=== PATIENT | male | born 1960 | race Caucasian/White ===

== ENCOUNTER → 2018-02-08 15:55 | Outpatient (CLI) | payer OTHER, SELFPAY ==
--- NOTE | 2018-02-08 16:14 | EKG12_ITS ---
Test Reason : PREOP Blood Pressure : / mmHG Vent. Rate : 051 BPM Atrial Rate : 051 BPM P-R Int : 180 ms QRS Dur : 100 ms QT Int : 486 ms P-R-T Axes : 059 025 -04 degrees QTc Int : 447 ms Sinus bradycardia Possible Lateral infarct , age undetermined Abnormal ECG Confirmed by TATE ASH, NASRIN ([id number]), editor publications ELISEO LUCIANO ([id number]) on 02/14/2018 3:46:38 PM Referred By: Wes Mcnamara Confirmed By:NASRIN YBARRA MD
[2018-02-08 17:00] LABS: Hematocrit 38.9 % (40-54); Hemoglobin 13.3 g/dl (13.0-16.5); Mean Corp Hgb Conc 34.2 g/gl (32-36); Mean Corpuscular Volume 87.8 fL (80-94); Mean Platelet Vol. 9.8 fl (6.2-12.0); Platelet Count 172 K/mm3 (150-450); RBC Distribution Width CV 12.9 % (11.6-14.6); RBC Distribution Width SD 41.6 fl (35.1-43.9); Red Blood Count 4.43 M/mm3 (4.6-6.2); White Blood Count 8.2 K/mm3 (4.4-11.0)
[2018-02-08 17:06] LABS: Scan Indicated on CBC? Y/N NO
[2018-02-08 17:25] LABS: Anion Gap 7 (5-15); BUN 24 mg/dL (7-18); BUN/Creat Ratio 27.6 RATIO (10-20); Chloride 107 mmol/L (98-107); Creatinine, Serum 0.87 mg/dL (0.70-1.30); EST Glomerular Filtration Rate 97 mL/min (>60); Est Glom Filt Rate - Afr Amer 117 mL/min (>60); Glucose 92 mg/dL (74-106); Sodium Level 142 mmol/L (136-145)
== END ==
PROVIDERS: Referring Provider Physician Assistant; Visit Provider Physician Assistant
DX: Z01.818 Encounter for other preprocedural examination (principal); Z01.810 Encounter for preprocedural cardiovascular examination
CPT/HCPCS: 36415; 80048; 85027; 93005

== ENCOUNTER → 2023-03-15 | Outpatient (CLI) | payer SELFPAY, OTHER ==
--- NOTE | 2023-03-15 15:38 | MRI_ITS ---
EXAM: MR CERVICAL SPINE WITHOUT INTRAVENOUS CONTRAST CLINICAL INDICATION: pain TECHNIQUE: Multiplanar and multisequence MR images of the cervical spine without intravenous contrast were performed. COMPARISON: Cervical spine radiographs, 02/26/2023. FINDINGS: VERTEBRAE: There is no evidence of an acute fracture or traumatic subluxation. Normal cervical lordosis. Normal craniocervical junction aside from mild degenerative changes. Normal cervicothoracic junction aside from mild degenerative changes. SPINAL CORD: No distinct spinal cord signal abnormality is identified. Mild mass effect upon the spinal cord at C5-C6. SOFT TISSUES: No significant abnormality. No prevertebral soft tissue swelling. LYMPH NODES: No significant abnormality. There is no cervical adenopathy. DISCS/SPINAL CANAL/NEURAL FORAMINA: C2-C3: No significant abnormality. No disc herniation, spinal canal stenosis, or neural foraminal narrowing. C3-C4: Central disc herniation and moderate bilateral facet and uncovertebral joint arthrosis. Mild spinal canal stenosis and bilateral neural foraminal narrowing. C4-C5: Central disc herniation and mild to moderate bilateral facet and uncovertebral joint arthrosis. Mild spinal canal stenosis and bilateral neural foraminal narrowing. C5-C6: Central disc herniation and moderate bilateral facet and uncovertebral joint arthrosis. Mild to moderate spinal canal stenosis with mass effect upon the ventral spinal cord. Mild bilateral neural foraminal narrowing. C6-C7: Disc height loss and disc desiccation with Modic type I predominant endplate signal changes. Disc bulge with superimposed central disc herniation and moderate bilateral facet and uncovertebral joint arthrosis with moderate left greater than right neural foraminal narrowing and mild spinal canal stenosis. C7-T1: Bilateral facet arthrosis. Mild bilateral neural foraminal narrowing. No disc herniation or spinal canal stenosis. MRI/Spine Cervical (Routine) IMPRESSION: Multilevel degenerative changes are worst at C5-C6. At this level, there is mild mass effect upon the spinal cord. No spinal cord signal abnormality is identified. See details above. Electronically Signed: Isra Palacios DO at 23:43 EST ,
== END | disposition home or self-care (01) ==
PROVIDERS: Referring Provider Orthopaedic Surgery; Visit Provider Orthopaedic Surgery
DX: M50.223 Other cervical disc displacement at C6-C7 level (principal)
CPT/HCPCS: 72141

== ENCOUNTER 2023-04-21 11:38 | Day surgery (SDC) | payer SELFPAY, OTHER ==
[2023-04-21 12:06] VITALS: BP 147/87; PULSE 59; RESP 16; TEMP 36.9; O2SAT 97
[2023-04-21] MEDS: Lactated Ringers 1,000 ML 15 ML IV (12:10)
--- NOTE | 2023-04-21 13:07 | HP.PCM_ITS ---
HPI - General HPI Narrative MADHU ARSHAD, is a 63 M who present for bilateral endoscopic carpal tunnel release. no changes to h and p. pt wishes to proceed. rab and post op restrictions discussed. bilateral wrists marked, no further concerns. MR#: [id number] Acct: [id number] Name: MADHU ARSHAD Rep #: [id number] : 1960 Provider: Dr. Jhonatan Epps MD Age/Sex: 63/M Location: [facility] [place] Status: Signed Intake Vital Signs 03/16/2312:43 Height 5 ft 7 in Intake Visit Reasons: BI LAT WRIST Chief Complaint: B/L wrists Director Of Religious Activities Required: No Accompanied by: Is patient in pain?: No Allergies No Known Allergies Allergy (Unverified 04/12/23 14:30) Medications NK 02/26/23 [History Confirmed 04/12/23] PFSH Medical History (Updated 04/12/23 @ 14:35 by Jhonatan Epps MD) Bilateral carpal tunnel syndrome Surgical History (Updated 04/12/23 @ 14:32 by Geovanna Braswell) H/O shoulder surgery History of hernia repair Social History (Updated 04/12/23 @ 14:32 by Geovanna Braswell) Smoking Status: Former smoker alcohol intake: never substance use type: does not use HPI BI LAT WRIST Details: This documentation accurately reflects the service provided and the decisions made by me, Dr. Jhonatan Epps MD 04/12/23 [id number]. Part of today?s visit was documented by [ ], acting as scribe. MADHU ARSHAD is a 63 year old M here today for bilateral carpal tunnel syndrome. referred by Dr. Rice spine surgeon - per his notes The thing that bothers him the very most is the numbness in his right hand sometimes it feels like it comes up his forearm and even into his arm thus it is hard to tell exactly where it is coming from. He does have somewhat of a positive Phalen's on the right negative on the left. At times the left hand does also go to sleep though not as bad as the right. He worked hard with his hands all his life. about 10 years of both hands going numb, works on heavy equipment, right worse, RHD. index and middle are the worse. worse when eating, holding a spoon or writing. here w his . no smoking, or other med hx. Ortho Exam General General: Yes no acute distress Neurologic: Yes alert and Yes oriented x3 Psychologic: Yes reasonable and appropriate Right Wrist/Hand Skin/Wound: Yes CDI, No Swelling, No Ecchymosis, Yes nail intact and Yes capillary refill normal Right Wrist: Yes ROM-Extension 0-60, ROM-Flexion 0-80, ROM-Pronation 0-80, ROM- Supination 0-90, Durken's Test, Phalen's and Thenar Atrophy; No Tinel's or Hypothenar Atrophy Motor: EPL: 5, FDP-2: 5, 1st Dorsal Interosseous: 5 and APB: 4 Sensation: Radial: I, Ulnar: I and Median: D Left Wrist/Hand Skin/Wound: Yes CDI, No Swelling, No Ecchymosis, Yes nail intact, Yes capillary refill normal and No erythema Left Wrist: Yes ROM-Extension 0-60, Yes ROM-Flexion 0-80, Yes ROM-Pronation 0- 80, Yes ROM-Supination 0-90, Yes Durken's Test, Yes Phalen's and Yes Thenar Atrophy; No Tinel's and No Hypothenar Atrophy Motor: EPL: 5, FDP-2: 5, 1st Dorsal Interosseous: 5 and APB: 4 Sensation: Radial: I, Ulnar: I and Median: D Supplemental Info Nerve conduction studies from April 05, 2023 impression is 1. Right median mononeuropathy at the wrist. This is consistent with a diagnosis of carpal tunnel syndrome moderate to severe in degree. 2. Left median mononeuropathy at the wrist. This is consistent with a diagnosis of carpal tunnel syndrome moderate to severe in degree. 3. This study is suggestive but not diagnostic for superimposed mild sensory polyneuropathy. May consider single lower extremity to assist in ruling in or out the diagnosis of clinically indicated. 4. No right or left cervical radicular findings are identified. Coding Level of Care Code Off vis,est,level 3 Diagnoses Bilateral carpal tunnel syndrome G56.03 Assessment and Plan Assessment and Plan (1) Bilateral carpal tunnel syndrome: Status: Acute Plan: MADHU ARSHAD is a 63 year old M here today for bilateral carpal tunnel syndrome. Discussed and counselled on the diagnosis prognosis different treatment options. Explained this can get worse or more permanent with time. The patient already has had this for 10 years and it is rated at moderate to severe . Therefore surgery may have a longer recovery or less reliable. Other options rest ice anti-inflammatories activity modifications and nighttime splinting cortisone injections are open versus endoscopic surgery. Patient would like to go ahead with bilateral endoscopic carpal tunnel release. I explained the pros and cons risks and benefits of this versus open surgery quicker recovery but also may be higher rate of incomplete release. The patient understands wishes to proceed. He had no further questions or concerns. Pros and cons risks and benefits were discussed with the patient including but not limited to infection, pain, stiffness, bleeding, damage to surrounding structures, neurovascular injury, recurrence or retear, failure or wear of hardware or fixation, instability, fracture, deep vein thrombosis and pulmonary embolism, anesthetic risks, , patient dissatisfaction, need for further surgery and other risks. Patient understood and wished to proceed with surgery, and signed the informed consent documentation. [facility] Medical History (Updated 04/19/23 @ 10:17 by Georgina Danielle) Bilateral carpal tunnel syndrome Cardiology follow-up encounter CPAP (continuous positive airway pressure) dependence Difficulty swallowing History of stress test Hypertrophic cardiomyopathy Injury of head and neck Non-smoker Shortness of breath on exertion Wears dentures Wears glasses Home Medications NK 02/26/23 [History Last Taken Unknown] Allergy/AdvReac Type Severity Reaction Status Date / Time No Known Allergies Allergy Verified 04/21/23 12:05 Surgical History (Updated 04/19/23 @ 10:17 by Georgina Danielle) H/O shoulder surgery History of esophagogastroduodenoscopy (EGD) History of hernia repair Social History (Updated 04/12/23 @ 14:32 by Geovanna Braswell) Smoking Status: Never smoker alcohol intake: never substance use type: does not use Vital Signs Vital Signs Vital Signs: 04/21/23 12:06 04/21/23 12:06 Temperature 98.5 F Temperature Source Temporal Pulse Rate 59 L Respiratory Rate 16 Respiratory Pattern Normal Blood Pressure 147/87 H Blood Pressure Mean 107 Blood Pressure Source Monitor Blood Pressure Position Semi-Fowlers Blood Pressure Location Left Arm Pulse Ox 97 Oxygen Delivery Method Room Air Weight Weight: 191 lb 12.835 oz Body Mass Index (BMI) 30.0
[2023-04-21] MEDS: Cefazolin 2 GM in 0.9% Normal Saline (100mL Bag) 100 ML IV (13:29)
--- NOTE | 2023-04-21 14:13 | OP.PCM_ITS ---
Problems Associated Problem List Diagnoses (1) Bilateral carpal tunnel syndrome: Report of Operation Date of Procedure: 04/21/23 Pre-Operative Diagnosis: bilateral carpal tunnel syndrome Post-Operative Diagnosis: same Surgery/Procedure Performed:: bilateral endoscopic carpal tunnel release Surgeon: Jhonatan Epps Type of Anesthesia: Local and MAC Anesthesiologist: Adrian Bryan Estimated Blood Loss (mL): 10 Description of Procedure: Patient was brought to the operating room theater.? The patient was administered 2g iv ancef prior to the start of the procedure.? Placed supine on the operating room table.? Anesthesia induced.? SCDs on the legs.? Tourniquet applied to bilat upper operative extremity, appropriately padded. Arm table used. Both wrists, operative extremity prepped and draped in the usual sterile fashion with chlorhexidine-based prep solution allowing over 3 minutes drying time prior to draping.? Preoperative timeout performed to confirm the site patient and the surgery. I performed the same procedure on both wrists, using arthroscope on the right and dorothy scope on the left. I used the [employer]the[employer] center line endoscopic carpal tunnel kit / technique. 0.25% bupivicaine at incision site. ? Tourniquet up at 250mmg. I made a transverse 2 cm incision in line with the? transverse wrist crease.? This was in line with the fourth digit.? I carried the dissection down through skin and subcutaneous tissue achieved meticulous hemostasis. Just ulnar to palmaris tendon.? I incised the antebrachial fascia.? I passed sequential dilators into the carpal tunnel along the radial border of the Guyon's canal aiming for the fourth digit with the hand in extension. I used a synovial haven vator to identify the transverse fibers of the transverse carpal tunnel ligament.? Passed the scope into the carpal tunnel. Once I had identified the full proximal and distal extent of the ligament I fully released the ligament under direct visualization by deploying the blade and slowly withdrawing the scope made sequential passes until I no longer felt tension as well as the entire extent of the ligament was released under direct visualization.? Sounded the tunnel with arnett tenotomy scissors, complete release, no bands. Pictures taken and saved before and after release. Tourniquet let down. Wound thoroughly irrigated.?Meticulous hemostasis achieved.? Incisions closed with 3-0 nylon for the skin.?Skin was cleaned and dried. adaptic 4x4 gauze and ayanna. Patient woken up,? transferred off the operating room table and taken to postanesthetic care unit in stable condition. All sponge needle instrument counts were correct no complications.? Plan for the patient to be discharged home according to day surgery criteria when they are comfortable. Follow-up in the office in 2 days time. Gentle ROM hand and elbow no heavy lifting. cpt 12460 x 2 Complications none Admit VTE Documentation VTE Present on Admission: No VTE Mechan Device Prophylaxis: SCD's VTE Pharm Prophylaxis ordered?: No Reason prophylaxis not ordered:: Treatment Not Indicated Procedures Musculoskeletal [id number]: Other Procedure See Report
--- NOTE | 2023-04-21 14:15 | DCINST_ITS ---
Discharge Instructions Diet Discharge Diet: No restrictions Activity Ice area for (Minutes): 10 Lifting Restrictions: no heavy lifting or gripping 6 weeks Keep extremity elevated above heart level: Operative Extremity Dressing / Incision Call your doctor if your incision/area has: Continuous Slow Oozing, Sudden Increased Bleeding, Increased Pain/ Swelling, Increased Redness, Foul Smelling Discharge and Swelling at the incision site Change Dressing in: leave in place till F/U Follow Up Care Please Follow Up With: Jhonatan Epps MD When: 2 days (if not then 2 weeks) Test Results: Test results from this visit will be discussed in further detail at your follow- up appointment, if applicable. Discharge Plan Admission Attending Provider: Jhonatan Epps Primary Care Provider: Jhonatan Curtis Discharge Orders/Prescriptions Prescriptions: No Action NK Referrals / Follow Up: Jhonatan Epps MD [Med Staff - Active Staff] - Jhonatan Curtis DO [Primary Care Provider] - Disposition Disposition (needs filled in before D/C Order can be placed): Home, Self Care
[2023-04-21 14:20] VITALS: BP 147/87; BP 148/76; PULSE 57; RESP 16; TEMP 36.7; O2SAT 94
[2023-04-21 14:25] VITALS: BP 136/77; BP 147/87; PULSE 49; RESP 16; O2SAT 95
[2023-04-21 14:30] VITALS: BP 147/87; BP 156/77; PULSE 48; RESP 16; O2SAT 96
[2023-04-21 14:40] VITALS: BP 147/87; BP 163/78; PULSE 52; RESP 16; TEMP 36.3; O2SAT 96
== END 2023-04-21 15:13 | disposition home or self-care (01) ==
LOC: SDC 11:39 → AC 11:41
PROVIDERS: Referring Provider Orthopaedic Surgery Sports Medicine; Visit Provider Orthopaedic Surgery Sports Medicine
PROC: (CPT 29848; principal; 2023-04-21 13:20)
DX: G56.03 Carpal tunnel syndrome, bilateral upper limbs (principal); Z87.891 Personal history of nicotine dependence
CPT/HCPCS: 29848; 01810; J7120; J2405

== ENCOUNTER → 2023-11-09 | Outpatient (CLI) | payer SELFPAY, OTHER ==
--- NOTE | 2023-11-09 10:52 | ECHOD_ITS ---
Reason For Study: HCM Procedure This was a 2D Doppler, Color Flow transthoracic echocardiogram. Exam performed in department. Left Ventricle Normal left ventricle. Severe eccentric left ventricular hypertrophy. The left ventricular ejection fraction is 60 %. No regional wall motion abnormalities noted. Right Ventricle Normal right ventricle. Normal systolic function. Atria The left atrium is moderately enlarged. Normal right atrium. Mitral Valve Normal mitral valve. No systolic anterior motion noted and no Valsalva gradient present. Mild (1+) mitral valve insufficiency. Tricuspid Valve Normal tricuspid valve. Mild tricuspid valve insufficiency. Pulmonary artery systolic pressure is 24 mmHg. Aortic Valve Trisinus/trileaflet aortic valve. Mild (1+) aortic valve insufficiency. Pulmonic Valve Normal pulmonic valve. Great Vessels Normal aortic root. The pulmonary artery is normal size. Normal inferior vena cava. Pericardium/Pleural No pericardial effusion. MMode/2D Measurements & Calculations LVIDd: 4.6 cm IVSd: 3.3 cm Ao root diam: 3.4 cm LVIDs: 2.4 cm LVPWd: 1.1 cm RVDd: 3.0 cm FS: 47.9 % LAV(MOD-bp): 82.4 ml LVAd ap4: 33.6 cm2 LVAd ap2: 26.7 cm2 LAV(MOD-bp) Indexed: 41.6 ml/m2 LVLd ap4: 9.5 cm LVLd ap2: 9.1 cm LAV(MOD-sp2): 65.6 ml EDV(MOD-sp4): 98.6 ml EDV(MOD-sp2): 67.7 ml LAV(MOD-sp4): 87.6 ml EDV(sp4-el): 100.3 ml EDV(sp2-el): 66.4 ml LVAs ap4: 19.6 cm2 LVAs ap2: 15.4 cm2 LVLs ap4: 8.5 cm LVLs ap2: 8.2 cm ESV(MOD-sp4): 40.8 ml ESV(MOD-sp2): 25.6 ml ESV(sp4-el): 38.2 ml ESV(sp2-el): 24.6 ml EF(MOD-sp4): 58.6 % EF(MOD-sp2): 62.1 % EF(sp4-el): 62.0 % SV(MOD-sp4): 57.8 ml SV(MOD-sp2): 42.1 ml SV(sp4-el): 62.2 ml LA dimension(2D): 4.5 cm LA A4 area: 27.3 cm2 RA A4 area: 22.9 cm2 TAPSE: 2.0 cm Time Measurements MV dec time: 0.33 sec Doppler Measurements & Calculations MV E max gurdeep: 73.4 cm/sec Lat Peak E' Gurdeep: 15.3 cm/sec Med Peak E' Gurdeep: 6.9 cm/sec MV A max gurdeep: 61.1 cm/sec E/E' lat: 4.8 E/E' med: 10.6 MV E/A: 1.2 MV dec slope: 220.7 cm/sec2 Ao V2 max: 130.9 cm/sec LV V1 max: 127.4 cm/sec Ao max P.8 mmHg LV V1 max P.5 mmHg Ao V2 mean: 95.2 cm/sec LV V1 mean P.9 mmHg Ao mean P.1 mmHg LV V1 mean: 92.3 cm/sec Ao V2 VTI: 33.7 cm LV V1 VTI: 32.1 cm AV (velocity ratio): 0.95 PA V2 max: 97.2 cm/sec PI end-d gurdeep: 63.0 cm/sec TR max gurdeep: 229.3 cm/sec TR max P.0 mmHg ECHO/Echo Complete Interpretation Summary Normal left ventricle. Severe eccentric left ventricular hypertrophy. The left ventricular ejection fraction is 60 %. No systolic anterior motion noted and no Valsalva gradient present Mild tricuspid valve insufficiency. Ordering Physician: Manoj Pandey Referring Physician: Jhonatan Curtis Performed By: Meghan Smith RDCS
== END | disposition home or self-care (01) ==
LOC: CVS 10:45
PROVIDERS: Referring Provider Internal Medicine Cardiovascular Disease; Visit Provider Internal Medicine Cardiovascular Disease
DX: I42.2 Other hypertrophic cardiomyopathy (principal)
CPT/HCPCS: 93306

== ENCOUNTER → 2023-12-02 | Outpatient (CLI) | payer OTHER, SELFPAY | END | disposition home or self-care (01) | LOC: PSN 13:27 | PROVIDERS: Referring Provider Nurse Practitioner Gerontology; Visit Provider Nurse Practitioner Gerontology | DX: I47.29 Other ventricular tachycardia (principal) | CPT/HCPCS: 93225; 93226 ==

== ENCOUNTER → 2023-12-31 | Outpatient (CLI) | payer OTHER, SELFPAY | END | disposition home or self-care (01) | LOC: PSN 07:29 | PROVIDERS: Referring Provider Nurse Practitioner Gerontology; Visit Provider Nurse Practitioner Gerontology | DX: I47.29 Other ventricular tachycardia (principal); I42.2 Other hypertrophic cardiomyopathy | CPT/HCPCS: 93225; 93226 ==